=== PATIENT | female | born 1980 | race Hispanic/Latino ===

== ENCOUNTER 2017-07-11 19:12 | Emergency (ER) | payer OTHER, SELFPAY ==
--- NOTE | 2017-07-11 21:44 | ER ---
Nurse's Notes [facility] Name: Marilee Arcos Age: 36 yrs Sex: Female : 1980 Arrival Date: 07/11/2017 Time: 19:15 Bed 14 Private MD: Diagnosis: Acute upper respiratory infection, unspecified Presentation: 07/11 19:33 Presenting complaint: Patient states: "I think I'm getting a sinus infection"; Began 2 lp1 days ago with head pressure, dizziness, headache, cough. Transition of care: patient was not received from another setting of care. Onset of symptoms was July 09, 2017. Risk Assessment: Do you want to hurt yourself or someone else? Patient reports no desire to harm self or others. Initial Sepsis Screen: Does the patient meet any 2 criteria? No. Patient's initial sepsis screen is negative. Does the patient have a suspected source of infection? No. Patient's initial sepsis screen is negative. Care prior to arrival: None. 19:33 Method Of Arrival: Ambulatory lp1 19:33 Acuity: FRANCA 4 lp1 Triage Assessment: 19:36 General: Appears in no apparent distress. Behavior is appropriate for age. Pain: lp1 Complains of pain in head Pain currently is 9 out of 10 on a pain scale. Quality of pain is described as pressure. Neuro: Level of Consciousness is awake, alert, obeys commands, Oriented to person, place, time, situation. Respiratory: Respiratory effort is even, unlabored. Derm: Skin is pink, warm \\T\\ dry. 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 - Social history:: Smoking status: Patient uses tobacco products, denies chronic smoking, but will smoke occasionally. - Ebola Screening: : No symptoms or risks identified at this time. Screenin:36 Abuse screen: Denies threats or abuse. Denies injuries from another. Nutritional lp1 screening: No deficits noted. Tuberculosis screening: No symptoms or risk factors identified. Fall Risk None identified. Assessment: 22:19 General: Appears in no apparent distress. well groomed, Behavior is calm, cooperative. bb Pain: Complains of pain in sinus area. Neuro: Level of Consciousness is awake, alert, obeys commands, Oriented to person, place, time, situation. Cardiovascular: No deficits noted. Respiratory: Respiratory effort is even, unlabored. GI: No signs and/or symptoms were reported involving the gastrointestinal system. : No signs and/or symptoms were reported regarding the genitourinary system. EENT: Reports nasal congestion. Derm: Skin is pink, warm \\T\\ dry. Musculoskeletal: Circulation, motion, and sensation intact. 22:21 Reassessment: pt verbalized understanding of and agrees to plan of care discharge bb instructions given pt ambulated with steady gait to exit accompanied by family. Vital Signs: 19:34 BP 136 / 94; Pulse 80; Resp 18; Temp 98.7(O); Pulse Ox 98% on R/A; Weight 84.37 kg; lp1 Height 5 ft. 3 in. (160.02 cm); Pain 9/10; 22:22 BP 123 / 78; Pulse 77; Resp 18 S; Temp 98.1(O); Pulse Ox 100% on R/A; bb 19:34 Body Mass Index 32.95 (84.37 kg, 160.02 cm) lp1 ED Course: 19:15 Patient arrived in ED. as 19:34 Triage completed. lp1 19:34 Arm band placed on right wrist. lp1 21:28 Migel Navarrete PA is PSYCHIATRICP. jr8 21:28 Dustin Banegas MD is Attending Physician. jr8 21:32 Radha Nunez, MARGARET is Primary Nurse. bb 22:19 Patient has correct armband on for positive identification. Call light in reach. Adult bb w/ patient. 22:19 No provider procedures requiring assistance completed. Patient did not have IV access bb during this emergency room visit. Administered Medications: No medications were administered Outcome: 21:44 Discharge ordered by . jr8 22:22 Discharged to home ambulatory, with family. bb 22:22 Condition: stable 22:22 Discharge instructions given to patient, Instructed on discharge instructions, follow up and referral plans. medication usage, Demonstrated understanding of instructions, follow-up care, medications, Prescriptions given X 2. 22:23 Patient left the ED. bb Signatures: Emelyn Saucedo Brenda RN RN bb Cyndie Jack RN RN lp1 Migel Navarrete PA PA jr8
--- NOTE | 2017-07-11 21:45 | EDPHYS ---
Physician Documentation [facility] Name: Marilee Arcos Age: 36 yrs Sex: Female : 1980 Arrival Date: 07/11/2017 Time: 19:15 Bed 14 Private MD: ED Physician Dustin Banegas HPI: 07/11 21:40 This 36 yrs old Female presents to ER via Ambulatory with complaints of Sinus jr8 Congestion. 21:40 The patient or guardian reports cough, that is intermittent, described as mild, with jr8 productive sputum, that is green. Onset: The symptoms/episode began/occurred acutely, yesterday. Severity of symptoms: At their worst the symptoms were mild, in the emergency department the symptoms are unchanged. Modifying factors: The symptoms are alleviated by nothing, the symptoms are aggravated by nothing. Associated signs and symptoms: Pertinent positives: earache, fever, rhinorrhea, sinus congestion, headache . The patient has not experienced similar symptoms in the past. The patient has not recently seen a physician. 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 - Social history:: Smoking status: Patient uses tobacco products, denies chronic smoking, but will smoke occasionally. - Ebola Screening: : No symptoms or risks identified at this time. ROS: 21:40 Eyes: Negative for injury, pain, redness, and discharge, Neck: Negative for injury, jr8 pain, and swelling, Cardiovascular: Negative for chest pain, palpitations, and edema, Abdomen/GI: Negative for abdominal pain, nausea, vomiting, diarrhea, and constipation, Back: Negative for injury and pain, MS/Extremity: Negative for injury and deformity, Skin: Negative for injury, rash, and discoloration. 21:40 Constitutional: Positive for malaise. 21:40 ENT: Positive for ear pain, rhinorrhea, sinus congestion. 21:40 Respiratory: Positive for cough, with green sputum. 21:40 Neuro: Positive for headache, Negative for altered mental status, dizziness, gait disturbance, hearing loss, loss of consciousness, numbness, seizure activity, speech changes, syncope, near syncope, tingling, tinnitus, tremor, visual changes, weakness. Exam: 21:40 Eyes: Pupils equal round and reactive to light, extra-ocular motions intact. Lids and jr8 lashes normal. Conjunctiva and sclera are non-icteric and not injected. Cornea within normal limits. Periorbital areas with no swelling, redness, or edema. ENT: Nares patent. No nasal discharge, no septal abnormalities noted. Tympanic membranes are normal and external auditory canals are clear. Oropharynx with no redness, swelling, or masses, exudates, or evidence of obstruction, uvula midline. Mucous membranes moist. Neck: Trachea midline, no thyromegaly or masses palpated, and no cervical lymphadenopathy. Supple, full range of motion without nuchal rigidity, or vertebral point tenderness. No Meningismus. Cardiovascular: Regular rate and rhythm with a normal S1 and S2. No gallops, murmurs, or rubs. Normal PMI, no JVD. No pulse deficits. Respiratory: Lungs have equal breath sounds bilaterally, clear to auscultation and percussion. No rales, rhonchi or wheezes noted. No increased work of breathing, no retractions or nasal flaring. Abdomen/GI: Soft, non-tender, with normal bowel sounds. No distension or tympany. No guarding or rebound. No evidence of tenderness throughout. Back: No spinal tenderness. No costovertebral tenderness. Full range of motion. Skin: Warm, dry with normal turgor. Normal color with no rashes, no lesions, and no evidence of cellulitis. MS/ Extremity: Pulses equal, no cyanosis. Neurovascular intact. Full, normal range of motion. Neuro: Awake and alert, GCS 15, oriented to person, place, time, and situation. Cranial nerves II-XII grossly intact. Motor strength 5/5 in all extremities. Sensory grossly intact. Cerebellar exam normal. Normal gait. 21:40 Head/face: Sinus tenderness, that is mild, that is moderate, is located over the left frontal sinus and left maxillary sinus. Vital Signs: 19:34 BP 136 / 94; Pulse 80; Resp 18; Temp 98.7(O); Pulse Ox 98% on R/A; Weight 84.37 kg; lp1 Height 5 ft. 3 in. (160.02 cm); Pain 9/10; 22:22 BP 123 / 78; Pulse 77; Resp 18 S; Temp 98.1(O); Pulse Ox 100% on R/A; bb 19:34 Body Mass Index 32.95 (84.37 kg, 160.02 cm) lp1 MDM: 21:28 Patient medically screened. jr8 21:40 Data reviewed: vital signs, nurses notes, and as a result, I will discharge patient. jr8 Data interpreted: Pulse oximetry: on room air is 98 %. Interpretation: normal. Counseling: I had a detailed discussion with the patient and/or guardian regarding: the historical points, exam findings, and any diagnostic results supporting the discharge/admit diagnosis, lab results, the need for outpatient follow up, a family practitioner, to return to the emergency department if symptoms worsen or persist or if there are any questions or concerns that arise at home. Administered Medications: No medications were administered Disposition: 07/12 06:46 Co-signature as Attending Physician, Dustin Banegas MD. rn Disposition: 07/11/17 21:44 Discharged to Home. Impression: Acute upper respiratory infection, unspecified. - Condition is Stable. - Discharge Instructions: Upper Respiratory Infection, Adult. - Prescriptions for Claritin- D 24 Hour 10-240 mg Oral Tablet Sustained Release 24 hr - take 1 tablet by ORAL route once daily As needed; 20 tablet. Zithromax Z- Heladio 250 mg Oral Tablet - take 1 tablet by ORAL route as directed for 5 days Day 1 - take two (2) tablets one time. Day 2, 3, 4 , 5 take one (1) tablet once daily.; 6 tablet. - Medication Reconciliation Form, Thank You Letter, Antibiotic Education, Prescription Opioid Use form. - Follow up: Private Physician; When: 1 week; Reason: Recheck today's complaints, Continuance of care, Re-evaluation by your physician. - Problem is new. - Symptoms have improved. Signatures: Radha Nunez RN RN bb Nieto, Roman, MD MD rn Pena, Laura, RN RN lp1 Migel Navarrete PA PA jr8 Corrections: (The following items were deleted from the chart) 07/11 22:23 21:44 07/11/2017 21:44 Discharged to Home. Impression: Acute upper respiratory bb infection, unspecified. Condition is Stable. Forms are Medication Reconciliation Form, Thank You Letter, Antibiotic Education, Prescription Opioid Use. Follow up: Private Physician; When: 1 week; Reason: Recheck today's complaints, Continuance of care, Re-evaluation by your physician. Problem is new. Symptoms have improved. jr8
== END 2017-07-11 22:23 | disposition home or self-care (01) ==
LOC: ER 19:12
DX: J06.9 Acute upper respiratory infection, unspecified (principal); Z72.0 Tobacco use
CPT/HCPCS: 99282